=== PATIENT | female | born 1930 | race Caucasian/White ===

== ENCOUNTER → 2018-04-07 | Outpatient (CLI) | payer MEDICARE ==
[~2018-04-07] MED LIST: OMNIPAQUE 350 MG/ML, 100ML BOTTLE ONE
== END | disposition home or self-care (01) ==
LOC: CFH 12:24
PROVIDERS: ATTEND Family Medicine
DX: N28.1 Cyst of kidney, acquired (principal); N26.1 Atrophy of kidney (terminal); I70.0 Atherosclerosis of aorta; N81.10 Cystocele, unspecified
CPT/HCPCS: 74177; Q9967

== ENCOUNTER 2020-02-13 14:40 | Outpatient (CLI) | payer MEDICARE | END 2020-02-13 23:59 | disposition home or self-care (01) | LOC: RAD 14:40 | PROVIDERS: ATTEND Family Medicine | DX: I82.462 Acute embolism and thrombosis of left calf muscular vein (principal); M79.89 Other specified soft tissue disorders ==

== ENCOUNTER → 2020-08-07 | Outpatient (CLI) | payer MEDICARE | END | disposition home or self-care (01) | LOC: CVU 14:49 | PROVIDERS: ATTEND Internal Medicine Cardiovascular Disease | DX: I65.23 Occlusion and stenosis of bilateral carotid arteries (principal); I10 Essential (primary) hypertension; E11.9 Type 2 diabetes mellitus without complications; I48.91 Unspecified atrial fibrillation; H53.8 Other visual disturbances | CPT/HCPCS: 93880 ==

== ENCOUNTER → 2020-08-22 | Outpatient (CLI) | payer MEDICARE | END | disposition home or self-care (01) | LOC: CFH 10:30 | PROVIDERS: ATTEND Internal Medicine Cardiovascular Disease | DX: H53.8 Other visual disturbances (principal); G45.9 Transient cerebral ischemic attack, unspecified | CPT/HCPCS: 70460; Q9967 ==

== ENCOUNTER 2021-05-14 11:10 | Day surgery (SDC) | payer MEDICARE ==
[~2021-05-14] VITALS: Ht 162.6 cm; Wt 98.2 kg
[~2021-05-14 11:10] MED LIST changes: -OMNIPAQUE 350 MG/ML, 100ML BOTTLE ONE; +PROPOFOL 10 MG/ML, 20ML ONE
[2021-05-14] MEDS ORDERED: FURO20TA3 PO (12:41)
[2021-05-14] MEDS ORDERED: POTA10CA PO (12:41)
[2021-05-14] MEDS ORDERED: APIX5TAB PO (12:41)
[2021-05-14] MEDS ORDERED: SIMV20TA19 PO (12:41)
[2021-05-14] MEDS ORDERED: METO25TA35 PO ×2 (12:41)
[2021-05-14] MEDS ORDERED: LEVO25TA4 PO (12:41)
[2021-05-14] MEDS ORDERED: GABA-827 PO (12:41)
[2021-05-14] MEDS ORDERED: BENF150C PO (12:41)
[2021-05-14] MEDS ORDERED: ALPH300C PO (12:41)
[2021-05-14] MEDS ORDERED: sodium bicarbonate PO (12:41)
[2021-05-14] MEDS ORDERED: CHOL10003 PO (12:41)
[2021-05-14] MEDS ORDERED: LOSA100T14 PO (12:41)
[2021-05-14 12:49] VITALS: BP 133/74
[2021-05-14] MEDS ORDERED: APIXABAN 5 MG TABLET PO STA (13:57)
[2021-05-14] MEDS ORDERED: APIXABAN 5 MG TABLET ONE (14:02)
[2021-05-14] MEDS ORDERED: APIXABAN 5 MG TABLET PO ONE (14:30)
== END 2021-05-14 14:19 | disposition home or self-care (01) ==
LOC: CACL 11:10
PROVIDERS: ATTEND Internal Medicine Cardiovascular Disease
DX: I48.91 Unspecified atrial fibrillation (principal); E11.22 Type 2 diabetes mellitus with diabetic chronic kidney disease; I12.9 Hypertensive chronic kidney disease with stage 1 through stage 4 chronic kidney disease, or unspecified chronic kidney disease; N18.30 Chronic kidney disease, stage 3 unspecified; E03.9 Hypothyroidism, unspecified; E78.5 Hyperlipidemia, unspecified; E66.3 Overweight; Z68.36 Body mass index [BMI] 36.0-36.9, adult; Z79.01 Long term (current) use of anticoagulants; Z79.890 Hormone replacement therapy; Z79.899 Other long term (current) drug therapy; Z86.718 Personal history of other venous thrombosis and embolism; Z88.0 Allergy status to penicillin; Z88.2 Allergy status to sulfonamides; Z88.8 Allergy status to other drugs, medicaments and biological substances; Z98.890 Other specified postprocedural states; Z82.49 Family history of ischemic heart disease and other diseases of the circulatory system; Z82.3 Family history of stroke
CPT/HCPCS: 92960; 93005; J2704